=== PATIENT | female | born 1980 | race Two or more races ===

== ENCOUNTER 2021-05-15 12:03 | Outpatient (CLI) | payer OTHER | END 2021-05-15 12:21 | disposition home or self-care (01) | LOC: SONOGRAMA 12:03 | PROVIDERS: ATTEND Pathology Anatomic Pathology & Clinical Pathology | DX: E04.2 Nontoxic multinodular goiter (principal) ==

== ENCOUNTER 2024-11-03 08:46 | Outpatient (CLI) | payer OTHER | END 2024-11-03 08:52 | disposition home or self-care (01) | LOC: SONOGRAMA 08:46 | PROVIDERS: ATTEND Family Medicine | DX: D64.9 Anemia, unspecified (principal); N94.89 Other specified conditions associated with female genital organs and menstrual cycle ==

== ENCOUNTER → 2025-02-06 11:15 | Outpatient (CLI) | payer OTHER ==
[2025-02-06 12:25] LABS: HEMATOCRIT 36.4 % (36.0-45.00); HEMOGLOBIN 11.5 g/dL (12.0-15.00); MEAN CELL VOLUME 73.6 fL (80.00-100.00); MEAN CORPUSCULAR HEMOGLOBIN 23.2 pg (27.00-32.0); MEAN CORPUSCULAR HGB CONC 31.5 g/dl (32.0-36.0); PLATELET COUNT 328 K/uL (150-450); RED BLOOD COUNT 4.94 M/uL (4.00-6.00); RED CELL DISTRIBUTION WIDTH 22.9 % (11.5-14.5)
[2025-02-06 13:00] LABS: ALBUMIN 3.9 gm/dL (3.4-5.0); BILIRUBIN TOTAL 0.31 mg/dL (0.3-1.2); CALCIUM 8.1 mg/dL (8.5-10.1); CREATININE SERUM 0.72 mg/dL (0.55-1.02); FERRITIN 65.8 NG/ML (8-252); GFR 88.83; GLOBULINA 3.4 G/DL (2.4-3.5); POTASSIUM 4.35 mEq/L (3.5-5.1); TOTAL PROTEIN 7.3 gm/dL (6.4-8.2)
[2025-02-06 13:57] LABS: FOLIC ACID 17.52 ng/ml (4.78-20)
== END | disposition home or self-care (01) ==
LOC: LAB 11:15
PROVIDERS: ATTEND Internal Medicine Hematology & Oncology
DX: E16.2 Hypoglycemia, unspecified (principal); N39.0 Urinary tract infection, site not specified; E78.2 Mixed hyperlipidemia; E56.9 Vitamin deficiency, unspecified; E55.9 Vitamin D deficiency, unspecified; E03.9 Hypothyroidism, unspecified; R97.1 Elevated cancer antigen 125 [CA 125]; R53.1 Weakness; Z11.3 Encounter for screening for infections with a predominantly sexual mode of transmission; D25.1 Intramural leiomyoma of uterus; D50.0 Iron deficiency anemia secondary to blood loss (chronic); N92.4 Excessive bleeding in the premenopausal period; D25.2 Subserosal leiomyoma of uterus; D50.8 Other iron deficiency anemias; I10 Essential (primary) hypertension; R74.02 Elevation of levels of lactic acid dehydrogenase [LDH]; K76.89 Other specified diseases of liver

== ENCOUNTER 2025-10-03 09:00 | Outpatient (CLI) | payer OTHER | END 2025-10-03 09:07 | disposition home or self-care (01) | LOC: SONOGRAMA 09:00 | DX: D25.9 Leiomyoma of uterus, unspecified (principal); R10.20 Pelvic and perineal pain unspecified side ==

== ENCOUNTER → 2025-10-10 08:39 | Outpatient (CLI) | payer OTHER ==
[2025-10-10 09:51] LABS: BASO % 1.1 % (0.1-1.2); EOS # 0.07 (0.04-0.54); EOS % 1.3 % (0.7-7.0); LYMPH # 2.59 (1.18-3.74); LYMPH % 48.3 % (19.3-53.1); MEAN PLATELET VOLUME 10.70 fl (9.4-12.4); MONO # 0.32 (0.24-0.82); MONO % 6.0 % (4.7-12.5); NEUT # 2.30 (1.56-6.13); NEUT % 42.9 % (34.0-71.1); RED CELL DISTRIBUTION WIDTH 23.8 % (11.6-14.4)
== END | disposition home or self-care (01) ==
LOC: LAB 08:39
DX: D25.9 Leiomyoma of uterus, unspecified (principal); E16.2 Hypoglycemia, unspecified; N39.0 Urinary tract infection, site not specified; E78.2 Mixed hyperlipidemia; E56.9 Vitamin deficiency, unspecified; E55.9 Vitamin D deficiency, unspecified; E03.9 Hypothyroidism, unspecified; R97.1 Elevated cancer antigen 125 [CA 125]; R53.1 Weakness; E66.01 Morbid (severe) obesity due to excess calories; Z11.3 Encounter for screening for infections with a predominantly sexual mode of transmission